=== PATIENT | female | born 1970 | race African-American/Black ===

== ENCOUNTER → 2022-06-28 | Day surgery (SDC) | payer MEDICARE, OTHER ==
[~2022-06-28] VITALS: Ht 157.5 cm; Wt 172.9 kg
[~2022-06-28] MED LIST: AMLODIPINE BESYL5 MG PO; ASPIRIN CHEWABL81 MG PO; ASPIRIN EC81 MG PO; BUMETANIDE2 MG PO; BUMEX1 MG PO; BUPROPION XL300 MG PO; BUSPAR5 MG PO; BUSPIRONE HCL15 MG PO; CALCIUM600 MG PO; CARAFATE1 GM PO; CLARITIN10 MG PO; CRESTOR40 MG PO; D3-501250 MCG PO; DICLOFENAC SOD100 G1 TOP; DIOVAN160 MG PO; DIOVAN80 MG PO; DRISDOL50000 UNIT PO; FEOSOL325 M1 PO; FEOSOL325 MG PO; INCRUSE ELLI62.5 MCG INH; ISOSORBIDE MONO60 MG PO; KLOR-CON M2020 MEQ PO; KLOR-CON20 MEQ PO; LEVO-T200 MCG PO; LEXAPRO20 MG PO; MULTILEX1 EACH PO; NORVASC 10MG TA10 MG PO; OXCARBAZEPINE300 MG PO; OXYGEN; PERCOCET 5-3251 EACH PO; PREDNISONE 20MG20 MG PO; PRILOSEC20 MG PO; QUETIAPINE FUMA50 MG PO; SEROQUEL PO; SINGULAIR10 MG PO; SPIRIVA RESPIMAT4 G1 INH; SUCRALFATE1 GM PO; SUPER CALCIUM600 MG PO; SYMBICORT 16010.2 GM INH; SYMBICORT 80-10.2 GM INH; SYNTHROID100 MCG PO; SYNTHROID125 MCG PO; TOPROL XL 25MG25 MG PO; TRILEPTAL150 MG PO; ULTRAM50 MG PO; VENTOLIN (1.25 MG/3 INH; VENTOLIN (2.5 MG/3 M INH; VENTOLIN HFA IN18 GM INH; VIBRAMYCIN100 MG PO; VITAMIN B-121000 MC1 PO; VITAMIN B-12500 MC2 PO
== END | disposition home or self-care (01) ==
LOC: FAS 08:04
DX: C50.911 Malignant neoplasm of unspecified site of right female breast (principal); C77.3 Secondary and unspecified malignant neoplasm of axilla and upper limb lymph nodes; J44.9 Chronic obstructive pulmonary disease, unspecified; I13.0 Hypertensive heart and chronic kidney disease with heart failure and stage 1 through stage 4 chronic kidney disease, or unspecified chronic kidney disease; N18.4 Chronic kidney disease, stage 4 (severe); I50.30 Unspecified diastolic (congestive) heart failure; I25.2 Old myocardial infarction; G47.33 Obstructive sleep apnea (adult) (pediatric); E03.9 Hypothyroidism, unspecified; I25.10 Atherosclerotic heart disease of native coronary artery without angina pectoris; K21.9 Gastro-esophageal reflux disease without esophagitis; E78.00 Pure hypercholesterolemia, unspecified; E66.01 Morbid (severe) obesity due to excess calories; Z68.45 Body mass index [BMI] 70 or greater, adult; Z87.891 Personal history of nicotine dependence; Z79.82 Long term (current) use of aspirin; Z79.890 Hormone replacement therapy; Z79.899 Other long term (current) drug therapy; Z88.8 Allergy status to other drugs, medicaments and biological substances; Z91.041 Radiographic dye allergy status; Z95.5 Presence of coronary angioplasty implant and graft; Z98.84 Bariatric surgery status; Z99.81 Dependence on supplemental oxygen
CPT/HCPCS: 71045; 76000; 93005; C1788; J0690; J1644; J2001; J2250; J3010